=== PATIENT | female | born 1990 | race Caucasian/White ===

== ENCOUNTER 2021-02-09 06:15 | Inpatient (IN) | payer MEDICAID, SELFPAY ==
[2021-02-09] VITALS (7 sets, daily range): BP systolic 107–118; BP diastolic 61–75; PULSE 81–85; RESP 15–18; TEMP 36.5–36.7; O2SAT 96–99; BMI 34.4
[2021-02-09 07:21] LABS: Basophils % 0.2 %; Eosinophils # 0.1 10^3/uL (0.0-0.8); Eosinophils % 0.8 %; Hematocrit 37.5 % (37.0-47.0); Hemoglobin 12.1 g/dL (11.5-15.3); Lymphocytes # 2.8 10^3/uL (0.8-4.8); Lymphocytes % 19.4 %; Mean Corpuscular HGB Conc 32.3 g/dL (30.0-36.0); Mean Corpuscular Volume 92.8 fL (81-99); Mean Platelet Volume 10.5 fL (7.4-10.4); Monocytes # 0.9 10^3/uL (0.2-0.9); Monocytes % 6.1 %; Neutrophils # 10.68 10^3/uL (1.8-7.7); Nucleated Red Blood Cells % 0 %; Platelet Count 270 10^3/cmm (130-400); Red Blood Count 4.04 10^6/uL (4.1-5.3); Red Cell Distribution Width 13.2 % (12.1-15.1); White Blood Count 14.6 10^3/uL (4.0-10.0)
--- NOTE | 2021-02-09 07:42 | PM.HP ---
Providers/Chief Complaint Admitting Physician: Prateek Haney MD Primary Care Provider: Prateek Haney MD History of Present Illness Dawna Marrero is a 30 year old female who is 7 now para 7 at 39 weeks gestation began having hard contractions earlier this morning. EMS was called and she went to a car and suddenly had to deliver. Her friend delivered her and cut the baby which they then clamped with a zip tie before the ambulance arrived. They stated that the baby cried well at and had no problems. She was brought to [facility] where she was brought to the OB department for evaluation. She also passed the placenta prior to arrival and they brought that with them in a [employer] bag. She has had no significant bleeding or other problems. Review of Systems Narrative: This patient is a 7 now para 7 female who was followed by this physician for only 3 visits during her course. She is very regular about keeping appointments. Initial evaluation was on 11/03/2020 at around 25 weeks gestation. Her next visit was on 01/19/2021 and again on 02/04/2021. She had discussed with this physician on her initial visit her desire for tubal ligation but did not keep any appointments to discuss with Dr. Germain the benefits and risks. The patient's blood type is O+ with antibody screen negative. Hepatitis B, hepatitis C, RPR and HIV were negative. Rubella was immune and group B strep was negative. Covid testing was not done. Const: Denies: fever(s), chills or body aches ENMT: Denies: throat pain Card: Denies: chest pain or palpitations Resp: Denies: dyspnea, productive cough or non-productive cough GI: Denies: abdominal pain, nausea, vomiting, heartburn or constipation : Reports: vaginal bleeding (Mild bleeding.) Musc: Denies: neck pain, back pain or joint pain Neuro: Denies: headache(s) or weakness in extremities Psych: Denies: anxiety or depression Medications/Allergies Allergies Allergy/AdvReac Type Severity Reaction Status Date / Time Sulfa (Sulfonamide Allergy Severe closes air Verified 05/06/20 13:51 Antibiotics) ways PFSH Acute PFSH: Social History Current gender identity: Female Female Reproductive History: control method: none Spontaneous abortions: No Physical Exam Const: COMMON NORMALS: no acute distress, average body habitus, patient oriented x3 and healthy appearing HENMT: MOUTH: Normal oral and palatal mucosa present Resp: COMMON NORMALS: normal respiratory effort, No retractions, No use of accessory muscles and clear to auscultation bilaterally Cardio: COMMON NORMALS: regular rate, regular rhythm and No murmurs present (Cardio) GI: COMMON NORMALS: Normal to inspection, nondistended, normoactive bowel sounds present, Soft to palpation and non-tender (Fundus is well below the umbilicus.) Extremity: COMMON NORMALS: full ROM, capillary refill normal and no pedal edema Neuro: COMMON NORMALS: moves all extremities, no focal motor deficits and no sensory deficits noted Psych: COMMON NORMALS: mental status grossly normal APPEARANCE: Yes well kempt Data : 02/09/21 06:30 A&P Assessment and plan (1) Spontaneous vaginal delivery: This delivery occurred in the parking lot at [employer]. There was no apparent complications of this rapid delivery. Mom appears to be doing well at this time. She will monitored and will be followed for routine postdelivery care. Status: Acute Attestations Medical Necessity Statement*: This patient delivered a baby very early this morning outside of the hospital. She requires hospitalization for immediate care and evaluation. I expect her hospital stay to probably be less than 2 midnights. 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
[2021-02-09] MEDS: oxytocin 30 UNIT/500 ML BAG 999 UNIT IV (07:48)
[2021-02-09] MEDS: docusate sodium 100 mg Capsule PO ×2 (10:44→19:28)
[2021-02-09] MEDS: ibuprofen 800 mg tablet PO ×3 (10:44→21:27)
[2021-02-09] MEDS: prenatal vitamin Capsule 1 CAP PO (10:45)
[2021-02-09 13:54] LABS: Amphetamines Screen Urine Negative (Negative); Barbiturates Screen Urine Negative (Negative); Benzodiazepines Screen Urine Negative (Negative); Cocaine Screen Urine Negative (Negative); Opiate Screen Urine Negative (Negative); PCP Screen Urine Negative (Negative); THC Screen Urine Positive (Negative)
[2021-02-09 20:07] LABS: Hematocrit 33.7 % (37.0-47.0); Mean Corpuscular HGB Conc 32.6 g/dL (30.0-36.0); Mean Corpuscular Hemoglobin 29.7 pg (28.0-34.0); Mean Corpuscular Volume 91.1 fL (81-99); Mean Platelet Volume 10.5 fL (7.4-10.4); Platelet Count 215 10^3/cmm (130-400); White Blood Count 10.8 10^3/uL (4.0-10.0)
[2021-02-10 04:00] VITALS: BP 94/60; PULSE 67; RESP 16; TEMP 36.4; O2SAT 98
--- NOTE | 2021-02-10 07:40 | PM.OBGYDC ---
Discharge Providers PAINTER APPRENTICE Date of Admission: 02/09/21 06:15 Date of Discharge: 02/10/21 Attending Provider at Admission: Prateek Haney MD Attending Provider at Discharge: Prateek Haney MD Primary Care Provider: Prateek Haney MD Diagnoses at Discharge Discharge Diagnosis (1) Spontaneous vaginal delivery: Status: Acute Reason for Visit Reason for Visit: IUP Hospital Course Hospital Course Patient delivered by spontaneous vaginal delivery very rapidly yesterday at the [place] [id number] parking lot. She was brought to [facility] OB department. She has had mild lochia but no significant bleeding and no other issues. Her drug screen was positive for marijuana only but the infant's drug screen is positive for amphetamines with meconium drug screen still pending. The patient denies recent use of methamphetamine. She does admit to using a large amount of marijuana. The patient is doing well and ambulating well. Overall, she has been fairly well attentive to the baby. However, as she was sleeping soundly the baby was brought to the nurses station last night. The patient is stable for discharge although we will be observing the baby longer. Family services is involved and she may very well not be going home with the baby. She desires a tubal ligation, however refused Covid screening and therefore was not able to be done during this visit. She wishes referral to [facility] for tubal at 6 weeks. Physical Exam Const: COMMON NORMALS: no acute distress and healthy appearing HENMT: MOUTH: Normal oral and palatal mucosa present Resp: COMMON NORMALS: normal respiratory effort, No retractions and clear to auscultation bilaterally AUSCULTATION: clear to auscultation bilaterally Cardio: COMMON NORMALS: regular rate, regular rhythm and No murmurs present (Cardio) RATE: regular rate RHYTHM: regular rhythm GI: COMMON NORMALS: Normal to inspection, nondistended, normoactive bowel sounds present, Soft to palpation and non-tender (Fundus is firm.) PALPATION: Yes Soft to palpation Extremity: COMMON NORMALS: normal to inspection, full ROM and no pedal edema Neuro: COMMON NORMALS: no focal motor deficits and no sensory deficits noted Psych: COMMON NORMALS: mental status grossly normal, cooperative and normal affect Discharge Data Data Completed and Pending: Labs from last 24 hours 02/09/21 02/09/21 19:40 12:30 WBC 10.8 H RBC 3.70 L Hgb 11.0 L Hct 33.7 L MCV 91.1 MCH 29.7 MCHC 32.6 RDW 13.0 Plt Count 215 MPV 10.5 H Urine Opiates Scre en Negative Ur Barbiturates Sc reen Negative Ur Phencyclidine S crn Negative Ur Amphetamines Sc reen Negative U Benzodiazepines Scrn Negative Urine Cocaine Scre en Negative U Marijuana (THC) Screen Positive H Vitals: Last Vital Signs Temp 97.6 F 02/10/21 04:00 Pulse 67 02/10/21 04:00 Resp 16 02/10/21 04:00 BP 94/60 02/10/21 04:00 Pulse Ox 98 02/10/21 04:00 Discharge Plan Discharge Patient Disposition: Home Condition: Stable Prescriptions: New docusate sodium [DOK] 100 mg Capsule 100 mg PO BID Qty: 60 RF: 1 ibuprofen 800 mg Tablet 800 mg PO TID Qty: 90 RF: 2 Continued Pepcid RF: 0 RF: 0 Discharge Orders: Discharge Order (Routine); Ordered 02/10/21 Ordered By: Prateek Haney Referrals: James Bailey MD [Physician] - 1 month (Patient desires tubal ligation.) Prateek Haney MD [Primary Care Provider] - 6 Weeks Discharge Diet: Usual diet Discharge Activity: Resume usual activity Discharge Attestations PAINTER APPRENTICE Time Spent in Discharge Care*: less than 30 min Specific Discharge Activities: Specific discharge activities: educating patient, documenting/other paperwork and evaluating patient/reviewing data Coding Level of Care Code Acute Ground Support Equipment Mechanic for g Fwd Diagnoses Spontaneous vaginal delivery O80
[2021-02-10] MEDS: docusate sodium 100 mg Capsule PO (09:19)
[2021-02-10] MEDS: ibuprofen 800 mg tablet PO (09:19)
[2021-02-10 09:45] VITALS: BP 116/62; PULSE 65; RESP 16; TEMP 36.9; O2SAT 98
--- NOTE | 2021-02-10 15:25 | PC.NURSE ---
[facility] requested for patient's drug screen results to be sent to them. Discussed this with my general manager Jefry Moody, who agreed that the request for the patient's drug screen results will have to go through medical records. Left a voicemail at [facility] [employer] supervisor Deanna, asking for a call back to the department so she can be given an update.
== END 2021-02-10 09:48 | disposition home or self-care (01) | DRG 776 ==
PROVIDERS: Admitting Provider Family Medicine; PCP Family Medicine; Visit Provider Family Medicine
DX: O99.325 Drug use complicating the puerperium (principal); F12.10 Cannabis abuse, uncomplicated
CPT/HCPCS: 12345; 36415; 80306; 85025; 85027

== ENCOUNTER 2021-04-10 18:23 | Inpatient (IN) | payer MEDICAID, SELFPAY ==
[2021-04-10 18:43] VITALS: BP 119/85; PULSE 107; RESP 16; TEMP 36.7; O2SAT 92; BMI 30.2
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
[2021-04-10 20:09] LABS: Basophils % 0.3 %; Eosinophils # 0.2 10^3/uL (0.0-0.8); Eosinophils % 1.5 %; Hematocrit 44.3 % (37.0-47.0); Hemoglobin 14.4 g/dL (11.5-15.3); Lymphocytes # 2.4 10^3/uL (0.8-4.8); Lymphocytes % 21.2 %; Mean Corpuscular HGB Conc 32.5 g/dL (30.0-36.0); Mean Corpuscular Hemoglobin 29.3 pg (28.0-34.0); Mean Corpuscular Volume 90.2 fL (81-99); Monocytes # 0.5 10^3/uL (0.2-0.9); Neutrophils # 8.32 10^3/uL (1.8-7.7); Neutrophils % 72.7 %; Nucleated Red Blood Cells % 0 %; Platelet Count 333 10^3/cmm (130-400); Red Blood Count 4.91 10^6/uL (4.1-5.3); Red Cell Distribution Width 13.9 % (12.1-15.1); White Blood Count 11.5 10^3/uL (4.0-10.0)
[2021-04-10 20:20] LABS: Amphetamines Screen Urine Negative (Negative); Barbiturates Screen Urine Negative (Negative); Benzodiazepines Screen Urine Negative (Negative); Cocaine Screen Urine Negative (Negative); Opiate Screen Urine Negative (Negative); PCP Screen Urine Negative (Negative); THC Screen Urine Positive (Negative)
[2021-04-10 20:25] LABS: Alanine Aminotransferase 27 U/L (0-33); Albumin Level 4.6 g/dL (3.5-5.2); Alcohol Level 22 mg/dL (0-10); Alkaline Phosphatase 72 IU/L (35-105); Anion Gap 17.2 (5-19); Aspartate Amino Transferase 20 U/L (0-32); Blood Urea Nitrogen 11 mg/dL (6-20); Carbon Dioxide 21 mmol/L (22-29); Chloride 105 mmol/L (98-107); Creatinine Clr Calc Pharmacy 123.7692; Globulin 2.8 g/dL (1.3-4.6); Glomerular Filtration Rate 116.6 mL/min (90-130); Glucose 107 mg/dL (65-115); Osmolality Calculated 288 mOsm/kg (285-295); Potassium 4.2 mmol/L (3.5-5.1); Sodium 139 mmol/L (136-145); Total Bilirubin 0.2 mg/dL (0.15-1.2); Total Protein 7.4 g/dL (6.6-8.7)
[2021-04-10 20:27] LABS: Acetaminophen < 5.0 ug/mL (10-30); HCG, Serum Qual Negative (Negative); Salicylate < 0.3 mg/dL (3-10)
[2021-04-10 21:03] VITALS: BP 105/70; PULSE 67; RESP 16; O2SAT 97
[2021-04-10 21:11] VITALS: BP 112/68; PULSE 80; RESP 18; TEMP 36.5; O2SAT 96
[2021-04-10] MEDS: acetaminophen 500 mg Tablet 1000 MG PO (21:24)
--- NOTE | 2021-04-10 21:48 | PC.NURSE ---
Called report to TALIA Gtz in NPU
[2021-04-10 22:00] VITALS: BP 112/68; PULSE 80; RESP 18; TEMP 36.5; O2SAT 96
[2021-04-10 22:36] VITALS: BP 112/68; PULSE 80; RESP 18; TEMP 36.5; O2SAT 96
[2021-04-10] MEDS: hyDROXYzine 25 mg Capsule 50 MG PO (22:44)
[2021-04-10] MEDS: trazodone 50 mg Tablet PO (22:45)
[2021-04-10 23:05] VITALS: BMI 30.2
[2021-04-10 23:45] VITALS: BMI 30.2
--- NOTE | 2021-04-11 01:06 | PC.NURSE ---
Skin assessment revealed bruising and swelling to both orbits, right greater than left.There is bruising and swelling to the left side of the face, between brow and ear. There is bruising to both hands. There is an old scar on the right forearm.
[2021-04-11 06:00] VITALS: BP 93/58; PULSE 71; RESP 18; TEMP 37.1; O2SAT 95
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
[2021-04-11] MEDS: citalopram 20 mg Tablet 10 MG PO (13:56)
[2021-04-11 14:00] VITALS: BP 104/64; PULSE 74; RESP 15; TEMP 36.8; O2SAT 99
[2021-04-11 20:31] VITALS: BP 111/68; PULSE 88; RESP 19; TEMP 36.8; O2SAT 97
[2021-04-11] MEDS: trazodone 50 mg Tablet PO (20:34)
--- NOTE | 2021-04-11 21:30 | PC.NURSE ---
Pt requesting trazodone for sleep. This nurse gave 50mg per order.
[2021-04-12 06:00] VITALS: BP 73/40; PULSE 60; RESP 15; TEMP 36.9; O2SAT 96
[2021-04-12] MEDS: citalopram 20 mg Tablet 10 MG PO (07:47)
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
[2021-04-12 13:20] VITALS: BP 101/64; PULSE 69; RESP 16; TEMP 37.1; O2SAT 97
[2021-04-12 19:45] VITALS: BP 116/76; PULSE 78; TEMP 36.9; O2SAT 97
[2021-04-12] MEDS: hyDROXYzine 25 mg Capsule 50 MG PO (20:26)
--- NOTE | 2021-04-12 20:30 | PC.NURSE ---
pt stated she has poison gordy on her leg that is driving me up a wall . pt asked if there was anything she could get before it drives me crazy . Vistaril 50mg given for increased anxiety.
[2021-04-12] MEDS: trazodone 50 mg Tablet PO (21:03)
--- NOTE | 2021-04-12 21:05 | PC.NURSE ---
pt came to desk requesting sleep med. trazodone 50mg po given.
--- NOTE | 2021-04-12 21:56 | PC.NURSE ---
pt stated her itching is much better. made the comment... it feels so much better, i actually forgot about it. pt has been on the phone to significant other. no s/s of tiredness noted.
[2021-04-13 06:00] VITALS: BP 87/55; PULSE 67; RESP 16; TEMP 36.4; O2SAT 98
[2021-04-13] MEDS: citalopram 20 mg Tablet PO (08:48)
--- NOTE | 2021-04-13 09:49 | DCPLANNER ---
accounts payable manager had message to schedule a follow up appointment for patient with [facility]. accounts payable manager emailed patients information to Candy Rios and Danyell at [facility]. Patients information will be printed and reviewed. Clinic will call patient with appointment information.
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
[2021-04-13 10:09] VITALS: BP 87/55; PULSE 67; RESP 16; TEMP 36.4; O2SAT 98
--- NOTE | 2021-04-17 08:31 | DCPLANNER ---
Patient had a follow up appointment scheduled for 04.14.[address] Haywood at [facility] - patient did not attend appointment.
== END 2021-04-13 10:15 | disposition home or self-care (01) | DRG 897 ==
LOC: ER 21:25 → NP 21:34
PROVIDERS: Admitting Provider Psychiatry & Neurology Psychiatry; Emergency Provider Physician Assistant; PCP Family Medicine; Visit Provider Psychiatry & Neurology Psychiatry
DX: F10.129 Alcohol abuse with intoxication, unspecified (principal); R45.851 Suicidal ideations; Y90.1 Blood alcohol level of 20-39 mg/100 ml; F43.25 Adjustment disorder with mixed disturbance of emotions and conduct; F43.10 Post-traumatic stress disorder, unspecified; F32.9 Major depressive disorder, single episode, unspecified
CPT/HCPCS: 70450; 70486; 72125; 73130; 80053; 80306; 80307; 84703; 85025

== ENCOUNTER 2024-02-14 22:49 | Inpatient (IN) | payer MEDICAID, SELFPAY ==
[2024-02-14 22:01] VITALS: BMI 36.2
[2024-02-14 22:42] VITALS: BP 113/65; PULSE 85; TEMP 36.3
[2024-02-14 22:51] VITALS: BP 105/61; PULSE 89
[2024-02-14] MEDS: miSOPROStol 100 mcg tablet 25 MCG VAGINAL (23:33)
[2024-02-15] VITALS (20 sets, daily range): BP systolic 90–142; BP diastolic 50–80; PULSE 63–86; RESP 15–16; TEMP 36.6–36.8; O2SAT 96–99
[2024-02-15 00:05] LABS: Basophils % 0.3 %; Eosinophils # 0.5 10^3/uL (0.0-0.8); Eosinophils % 3.7 %; Hematocrit 36.4 % (36-47); Lymphocytes # 3.4 10^3/uL (0.8-4.8); Lymphocytes % 25.7 %; Mean Corpuscular HGB Conc 34.1 g/dL (30-55); Mean Corpuscular Hemoglobin 32.1 pg (27-33); Mean Corpuscular Volume 94.3 fl (85-98); Mean Platelet Volume 9.7 fL (7.4-10.4); Monocytes # 0.6 10^3/uL (0.2-0.9); Monocytes % 4.3 %; Neutrophils # 8.73 10^3/uL (1.8-7.7); Neutrophils % 65.5 %; Nucleated Red Blood Cells % 0 %; Platelet Count 236 10^3/cmm (157-399); Red Blood Count 3.86 10^6/uL (3.85-5.65); Red Cell Distribution Width 12.4 % (12.1-15.1); White Blood Count 13.34 10^3/uL (3.29-11.43)
[2024-02-15 00:33] LABS: Amphetamines Screen Urine Negative (Negative); Barbiturates Screen Urine Negative (Negative); Benzodiazepines Screen Urine Negative (Negative); Cocaine Screen Urine Negative (Negative); Opiate Screen Urine Negative (Negative); PCP Screen Urine Negative (Negative); THC Screen Urine Negative (Negative)
[2024-02-15] MEDS: dextrose 5%-lactated ringers 1,000 ML 125 ML IV (02:23)
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
--- NOTE | 2024-02-15 04:00 | P.PCNOB_ITS ---
Delivery Note: Date of delivery: February 15, 2024 Pre-delivery diagnoses: 33-year-old 7 para 6-0-0-7 at th e 40 weeks estimated gestational age presenting for induction due to history of rapid labors Post-delivery diagnoses: Status post precipitous vaginal delivery Procedure: Precipitous vaginal delivery Delivering Physician: Milton Germain Estimated blood loss (mL): 100 Pre-Delivery Course: The patient presented to the hospital for induction. She was placed on Cytotec 25 mcg x 1. She progressed to 7 cm and could not stop pushing and had a baby a few minutes later. Delivery: DELIVERY: The patient progressed to complete without difficulty. She delivered a female with a weight of 6 pounds 4 ounces with Apgars of 8, 9. The baby was delivered from the vertex position. Shortly after the baby delivered precipitously she was placed on the mother's abdomen. The cord was then clamped and cut about 2 to 3 minutes after delivery. There was no nuchal cord. There was no meconium. The placenta and 3 vessel cord were delivered intact shortly thereafter. The perineum and vaginal vault were carefully examined. No lacerations were noted. Both the mother and the baby were in stable condition. Post-Delivery Status: Good History History History 7 Term 7 0 Miscarriages/Ectopic 0 Living Children 8 A&P Assessment and plan (1) Vaginal delivery: Anticipate routine care. Because she was found to be positive for marijuana during her DFS will be contacted. Coding Level of Care Code Acute Code for Chg Fwd Diagnoses Vaginal delivery O80
[2024-02-15] MEDS: ibuprofen 800 mg tablet PO ×3 (10:20→20:08)
[2024-02-15] MEDS: docusate sodium 100 mg Capsule PO ×2 (10:20→17:52)
[2024-02-15 15:37] LABS: Hematocrit 37.2 % (36-47); Mean Corpuscular HGB Conc 34.4 g/dL (30-55); Mean Corpuscular Hemoglobin 32.3 pg (27-33); Mean Corpuscular Volume 93.9 fl (85-98); Mean Platelet Volume 9.7 fL (7.4-10.4); Platelet Count 235 10^3/cmm (157-399); Red Blood Count 3.96 10^6/uL (3.85-5.65); Red Cell Distribution Width 12.2 % (12.1-15.1); White Blood Count 15.24 10^3/uL (3.29-11.43)
[2024-02-16] VITALS (8 sets, daily range): BP systolic 105–126; BP diastolic 63–74; PULSE 59–80; RESP 17; TEMP 36.7–36.8; O2SAT 95–97
[2024-02-16] MEDS: metoclopramide 5 mg/mL SDV 2 mL 10 MG IVP (06:44)
[2024-02-16] MEDS: lactated ringers 1,000 ML 999 ML IV (06:44)
[2024-02-16] MEDS: citric acid-sodium citrate 30 mL UDC PO (06:44)
[2024-02-16] MEDS: famotidine 20 mg/2 mL INJ IVP (06:44)
[2024-02-16] MEDS: ceFAZolin 2,000 MG in sodium chloride 0.9% (plus) 50 ML 100 MG IV (06:44)
[2024-02-16] MEDS: BUPivacaine 0.5% INJ 10 mL INJECTION (07:15)
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
--- NOTE | 2024-02-16 07:47 | P.OP_ITS ---
Operative Report Date of procedure: February 16, 2024 Pre-op diagnosis: 33-year-old multigravida desiring sterilization Post-op diagnosis: Status post bilateral tubal ligation Procedure done: minilaparotomy bilateral tubal ligation Specimens removed/disposition: Bilateral fallopian tube segments with the right segment being tagged Pathology: Bilateral fallopian tube segments with the right segment being tagged Surgeon: Milton Germain MD Anesthesia: General Complications: None Procedure: The patient was brought back to the operating room where anesthesia was found to be adequate. 10 mL of 0.5% bupivacaine was then used to pre-anesthetize the area just inferior to the umbilicus. A #15 blade was then used to make a 3 cm transverse incision just inferior to the umbilicus. I then dissected down to the underlying subcutaneous tissue until arriving at the fascia. The fascia was then nicked with the scalpel. The fascial incision was extended manually. I identified the fundus of the uterus and followed it to the left fallopian tube. The fallopian tube was then followed to the fimbria. The tube was then ligated, cut, and cauterized in a modified [place] fashion using 0 chromic. The right fallopian tube was then identified and followed through to the fimbria. It was ligated, cut, and cauterized in similar fashion. The right fallopian tube was tagged. Both fallopian tubes had excellent hemostasis. The fascia was reapproximated using 0 Vicryl in running stitch. The boswell bcutaneous tissue was carefully examined and no further bleeding was noted. The skin was then reapproximated using 4-0 Vicryl in a running subcuticular stitch. A sterile dressing was placed. All counts were correct x2. The patient was moved to the recovery room in stable condition.
--- NOTE | 2024-02-16 07:51 | PM.OBGYDC ---
Discharge Providers MANAGER FOREIGN Date of Admission: 02/14/24 22:49 Date of Discharge: 02/16/24 Attending Provider at Admission: Milton Germain MD Attending Provider at Discharge: Milton Germain MD Diagnoses at Discharge Discharge Diagnosis (1) Vaginal delivery: Status: Acute Reason for Visit Reason for Visit: induction of labor Hospital Course Hospital Course The patient presented to the hospital for induction. She had Cytotec 25 mcg x 1. She had a precipitous delivery. Her course was otherwise unremarkable. Her bleeding was within normal limits. Her pain was well-controlled. She both breast and bottle fed. She had a tubal ligation performed the day after her delivery. The procedure was unremarkable. She recovered appropriately. There were no concerns. Information Peripartum Data: Infant Delivery Method: Vaginal Physical Exam Narrative: She is in no acute distress Lungs are clear auscultation bilaterally Her heart has a regular rate and rhythm Her fundus is below the umbilicus and firm Her dressing is clean, dry and intact Her extremities have trace edema History History History 7 Term 7 0 Miscarriages/Ectopic 0 Living Children 8 Discharge Data Studies Completed and Pending Laboratory Results WBC 15.24 10^3/uL (3.29-11.43) H 02/15/24 15:17 Corrected WBC Cancelled 02/14/24 23:30 RBC 3.96 10^6/uL (3.85-5.65) 02/15/24 15:17 Hgb 12.80 g/dL (11.27-16.99) 02/15/24 15:17 Hct 37.2 % (36-47) 02/15/24 15:17 MCV 93.9 fl (85-98) 02/15/24 15:17 MCH 32.3 pg (27-33) 02/15/24 15:17 MCHC 34.4 g/dL (30-55) 02/15/24 15:17 RDW 12.2 % (12.1-15.1) 02/15/24 15:17 Plt Count 235 10^3/cmm (157-399) 02/15/24 15:17 MPV 9.7 fL (7.4-10.4) 02/15/24 15:17 Gran % Cancelled 02/14/24 23:30 Neut % (Auto) 65.5 % 02/14/24 23:56 Lymph % (Auto) 25.7 % 02/14/24 23:56 Ware % (Auto) 4.3 % 02/14/24 23:56 Eos % (Auto) 3.7 % 02/14/24 23:56 Baso % (Auto) 0.3 % 02/14/24 23:56 Neut # (Auto) 8.73 10^3/uL (1.8-7.7) H 02/14/24 23:56 Lymph # (Auto) 3.4 10^3/uL (0.8-4.8) 02/14/24 23:56 Ware # (Auto) 0.6 10^3/uL (0.2-0.9) 02/14/24 23:56 Eos # (Auto) 0.5 10^3/uL (0.0-0.8) 02/14/24 23:56 Baso # (Auto) 0.0 10^3/uL (0.0-0.1) 02/14/24 23:56 Absolute Gran (auto) Cancelled 02/14/24 23:30 Nucleated RBC % (auto) 0 % 02/14/24 23:56 Nucleated RBCs # 0.0 /100WBC 02/14/24 23:56 Urine Opiates Screen Negative ng/mL (Negative) 02/14/24 23:00 Ur Barbiturates Screen Negative ng/mL (Negative) 02/14/24 23:00 Ur Phencyclidine Scrn Negative ng/mL (Negative) 02/14/24 23:00 Ur Amphetamines Screen Negative ng/mL (Negative) 02/14/24 23:00 U Benzodiazepines Scrn Negative ng/mL (Negative) 02/14/24 23:00 Urine Cocaine Screen Negative ng/mL (Negative) 02/14/24 23:00 U Marijuana (THC) Screen Negative ng/mL (Negative) 02/14/24 23:00 Blood Type O Positive 02/15/24 00:45 Rho(D) Type Rh positive 02/15/24 00:45 Antibody Screen Negative 02/15/24 00:45 Vitals Last Vital Signs Temp 98.0 F 02/15/24 20:11 Pulse 84 02/15/24 20:11 Resp 16 02/15/24 20:11 BP 90/54 02/15/24 20:11 Pulse Ox 98 02/15/24 14:31 O2 Del Method Room Air 02/15/24 14:31 Results Labs OB ([facility]): Obstetrics US 12/07/23 Blood Type O Positive 02/15/24 Antibody Screen Negative 02/15/24 Hct 37.2 % (36-47) 02/15/24 Hgb 12.80 g/dL (11.27-16.99) 02/15/24 Rho(D) Type Rh positive 02/15/24 Plt Count 235 10^3/cmm (157-399) 02/15/24 Hep Bs Antigen Non-Reactive (NONREACTIVE) 05/26/19 Hep B Core IgM Ab Non-Reactive (NONREACTIVE) 05/26/19 Hepatitis C Antibody Non-Reactive (NONREACTIVE) 05/26/19 TSH 1.05 uIU/mL (0.27-4.2) 05/25/19 Ser , Semi-Qnt < 0.50 mIU/mL 05/26/19 HCG, Qual Negative (Negative) 04/10/21 Urine Opiates Screen Negative ng/mL (Negative) 02/14/24 Ur Barbiturates Screen Negative ng/mL (Negative) 02/14/24 Ur Phencyclidine Scrn Negative ng/mL (Negative) 02/14/24 Ur Amphetamines Screen Negative ng/mL (Negative) 02/14/24 U Benzodiazepines Scrn Negative ng/mL (Negative) 02/14/24 Urine Cocaine Screen Negative ng/mL (Negative) 02/14/24 U Marijuana (THC) Screen Negative ng/mL (Negative) 02/14/24 Discharge Plan Discharge Patient Disposition: Home Condition: Stable Prescriptions: New hydrocodone-acetaminophen 5-325 mg Tablet 1 tab PO Q6H PRN (Reason: Moderate To Severe Pain) Qty: 10 0RF ibuprofen 800 mg Tablet 800 mg PO TID Qty: 45 0RF Se-Ze-19 29 mg iron- 1 mg tablet 1 tab PO DAILY Qty: 90 3RF Discontinued azithromycin 250 mg tablet See Rx Instructions PO .COMPLEX Qty: 6 0RF Rx Instructions: take 500 mg today (day 1), then 250 mg for 4 days (days 2-5) PO cetirizine [Zyrtec] 10 mg tablet 10 mg PO DAILY PRN (Reason: nasal congestion) Qty: 30 0RF Discharge Orders: Discharge Order (Routine); Ordered 02/16/24 Ordered By: Milton Germain Discharge Diet: Usual diet Discharge Activity: Limit activity as instructed Patient Instructions: Opioid Safety Discharge Attestations MANAGER FOREIGN Time Spent in Discharge Care*: less than 30 min Status at Discharge: Cognitive status at discharge: cognitively intact, Behavioral status at discharge: cooperative, Coding Level of Care Code Acute Code for Chg Fwd Diagnoses Vaginal delivery O80
[2024-02-16] MEDS: ibuprofen 800 mg tablet PO (09:06)
[2024-02-16] MEDS: docusate sodium 100 mg Capsule PO (09:06)
== END 2024-02-16 12:30 | disposition home or self-care (01) | DRG 797 ==
LOC: OPOB 22:52 → OBGYN 22:52
PROVIDERS: Admitting Provider Family Medicine; Visit Provider Family Medicine
PROC: 0UB70ZZ Excision of Bilateral Fallopian Tubes, Open Approach (ICD-10-PCS; CPT 58605; principal; 2024-02-16 07:00)
DX: O48.0 Post-term pregnancy (principal); O99.324 Drug use complicating childbirth; Z37.0 Single live birth; O62.3 Precipitate labor; O99.334 Smoking (tobacco) complicating childbirth; F17.200 Nicotine dependence, unspecified, uncomplicated; F15.11 Other stimulant abuse, in remission; Z3A.40 40 weeks gestation of pregnancy; Z91.51 Personal history of suicidal behavior; Z30.2 Encounter for sterilization
CPT/HCPCS: 36415; 59025; 59409; 80306; 85025; 85027; 86850; 86900; 88302; 96374; J0690; J1100; J2405; J2704; J2710; J2765; J3010; J3490; J7120; J7121

== ENCOUNTER 2024-11-21 21:33 | Emergency (ER) | payer MEDICAID, SELFPAY ==
[2024-11-21 21:35] VITALS: BP 114/71; PULSE 120; RESP 18; TEMP 36.8; O2SAT 97; BMI 32.1
[2024-11-21 22:07] LABS: Bilirubin Urine Negative (Negative); Blood Urine 3+ (Negative); Glucose Urine UA Negative (Normal); Ketones Urine Trace (Negative); Leukocyte Esterase Urine 1+ (Negative); Nitrate Urine Negative (Negative); Protein Urine 2+ (Negative); Specific Gravity, Urine 1.013 (1.005-1.030); Urine Appearance Cloudy (CLEAR)
[2024-11-21 22:09] LABS: Bacteria Urine None Seen /hpf; Hyaline Casts Urine 6.61 /lpf; RBC Urine >100 /hpf (0-2); Squamous Epithelial Cell Urine 0-5 /hpf (0-5); WBC Urine >100 /hpf (0-5)
[2024-11-21 22:22] LABS: HCG Qualitative Urine. Negative (Negative)
--- NOTE | 2024-11-21 22:23 | CTR_ITS ---
PROCEDURE INFORMATION: Exam: CT Abdomen And Pelvis With Contrast Exam date and time: 11/21/2024 11:29 PM Age: 34 years old Clinical indication: Abdominal pain; Generalized; Prior surgery; Surgery date: 6+ months; Surgery type: Tubal 9 month ago TECHNIQUE: Imaging protocol: Computed tomography of the abdomen and pelvis with contrast. Radiation optimization: All CT scans at this facility use at least one of these dose optimization techniques: automated exposure control; mA and/or kV adjustment per patient size (includes targeted exams where dose is matched to clinical indication); or iterative reconstruction. Contrast material: OMNI 350; Contrast volume: 100 ml; Contrast route: INTRAVENOUS (IV); COMPARISON: [place] [id number] 12/07/2023 3:39 PM RADIATION DOSE METRICS: Total DLP (mGy-cm): 851.86 FINDINGS: Liver: The liver is enlarged, measuring 21.2 cm craniocaudal. Gallbladder and biliary ducts: Normal. No calcified stones. No ductal dilation. Pancreas: Normal. No ductal dilation. Spleen: Normal. No splenomegaly. Adrenal glands: Normal. No mass. Kidneys and ureters: Subcentimeter left renal hypodensity is too small to characterize but likely represents a cyst. No hydronephrosis. Stomach and bowel: Unremarkable. No obstruction. No mucosal thickening. Appendix: No evidence of appendicitis. Intraperitoneal space: Unremarkable. No free air. No significant fluid collection. Vasculature: Unremarkable. No abdominal aortic aneurysm. Lymph nodes: Unremarkable. No enlarged lymph nodes. Urinary bladder: Unremarkable as visualized. Reproductive: Mildly complex cystic lesions in bilateral ovaries measuring 2.8 cm on the right and 3.1 cm on the left. Bones/joints: Unremarkable. No acute fracture. Soft tissues: Unremarkable. CT/CT abdomen pelvis w con* [id number] IMPRESSION: 1. No acute findings in the abdomen/pelvis. 2. Mildly complex bilateral adnexal cystic structures could represent hemorrhagic cysts. These could be further assessed with nonemergent pelvic ultrasound if warranted. 3. Hepatomegaly. COMMENTS: Consistent with the [employer]'s Incidental Findings Committee white paper (J Am Doni Radiol 2018): Any incidental renal lesion less than 1 cm or classified as too small to characterize, or any incidental cystic renal lesion characterized as simple-appearing, is likely benign. No follow-up imaging is recommended for these lesions per consensus recommendations based on imaging criteria.
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
[2024-11-21 22:31] LABS: UA Slide Review UA Slide Review Perf; Urine Color Dark Yellow (Yellow)
[2024-11-21 22:32] LABS: Add Urine Culture? Yes
[2024-11-21 22:36] LABS: Basophils % 0.3 %; Eosinophils # 0.4 10^3/uL (0.0-0.8); Eosinophils % 2.4 %; Hematocrit 43.8 % (36-47); Lymphocytes # 3.9 10^3/uL (0.8-4.8); Lymphocytes % 26.7 %; Mean Corpuscular HGB Conc 33.3 g/dL (30-55); Mean Corpuscular Hemoglobin 31.5 pg (27-33); Mean Corpuscular Volume 94.4 fl (85-98); Mean Platelet Volume 9.4 fL (7.4-10.4); Monocytes # 1.1 10^3/uL (0.2-0.9); Monocytes % 7.3 %; Neutrophils # 9.22 10^3/uL (1.8-7.7); Nucleated Red Blood Cells % 0 %; Platelet Count 280 10^3/cmm (157-399); Red Blood Count 4.64 10^6/uL (3.85-5.65); Red Cell Distribution Width 11.4 % (12.1-15.1); White Blood Count 14.62 10^3/uL (3.29-11.43)
[2024-11-21 22:39] VITALS: BP 139/88; PULSE 93; O2SAT 96
[2024-11-21 22:53] LABS: Alanine Aminotransferase 10 U/L (0-33); Albumin Level 4.1 g/dL (3.5-5.2); Alkaline Phosphatase 80 U/L (35-105); Anion Gap 12.8 (5-19); Aspartate Amino Transferase 11 U/L (0-32); Blood Urea Nitrogen 11 mg/dL (6-20); Calcium 9.1 mg/dL (8.5-10.5); Carbon Dioxide 26 mmol/L (22-29); Chloride 100 mmol/L (98-107); Creatinine Clr Calc Pharmacy 92.2318; Globulin 2.6 g/dL (1.3-4.6); Glomerular Filtration Rate 81.6 mL/min (90-130); Glucose 114 mg/dL (65-115); Osmolality Calculated 280 mOsm/kg (285-295); Potassium 3.8 mmol/L (3.5-5.1); Sodium 135 mmol/L (136-145); Total Bilirubin 0.4 mg/dL (0.15-1.2); Total Protein 6.7 g/dL (6.6-8.7)
[2024-11-21 23:22] VITALS: BP 108/69; PULSE 87; O2SAT 94
[2024-11-21 23:30] VITALS: BP 108/69; PULSE 92; O2SAT 95
[2024-11-21] MEDS: iohexol 350 mg/mL 500 mL Btl (per mL) IV (23:32)
[2024-11-21] MEDS: cefTRIAXone 1,000 mg SDV 1000 MG IVP (23:45)
[2024-11-22] MEDS: ondansetron 2 mg/ML SDV 2 mL 4 MG IVP (00:21)
[2024-11-22] MEDS: ketorolac 30 mg/mL INJ IVP (00:21)
[2024-11-22 00:29] VITALS: BP 108/90; PULSE 93; O2SAT 97
== END 2024-11-22 00:30 | disposition home or self-care (01) ==
PROVIDERS: Emergency Provider Emergency Medicine
DX: N39.0 Urinary tract infection, site not specified (principal); Z72.0 Tobacco use
CPT/HCPCS: 36415; 74177; 80053; 81001; 81025; 85025; 87077; 87086; 87186; 96374; 96375; 99285; J0696; J1885; J2405